=== PATIENT | male | born 1960 ===

== ENCOUNTER 2023-11-20 06:54 | Day surgery (SDC) | payer OTHER ==
[2023-11-17 14:02] VITALS: BP 116/79
[~2023-11-20] VITALS: Ht 172.7 cm; Wt 112.5 kg
[~2023-11-20 06:54] MED LIST: LYRICA50 MG PO; ROSUVASTATIN CAL5 MG PO; VASOTEC10 MG PO
[2023-11-20] MEDS ORDERED: BUPIVACAINE HCL/Mpf 0.5% 10ML VIAL ONE (13:19)
[2023-11-20] MEDS ORDERED: DEXAMETHASONE SODIUM PHOSPHATE 4 MG/ML VIAL ONE (13:19)
== END 2023-11-20 16:00 | disposition home or self-care (01) ==
LOC: CIR.AMB 06:54
PROVIDERS: ATTEND Anesthesiology Pain Medicine
DX: M99.73 Connective tissue and disc stenosis of intervertebral foramina of lumbar region (principal); I10 Essential (primary) hypertension